=== PATIENT | male | born 1930 | race Caucasian/White ===

== ENCOUNTER 2016-08-10 08:00 | Day surgery (SDC) | payer OTHER ==
[2016-08-07 14:43] LABS: MANUAL DIFF NEEDED? NO
[2016-08-07 14:46] LABS: BASO% 0.6 % (0.0-0.8); EOS# 0.23 X1000 (0.0-0.7); EOS% 2.5 % (0.0-10.0); HEMATOCRIT 39.9 % (42.0-52.0); HEMOGLOBIN 13.6 g/dL (14.0-18.0); IMM GRAN# 0.02 X1000 (0.0-0.04); IMM GRAN% 0.2 % (0.0-0.5); LYMPH# 2.62 X1000 (1.2-3.4); MCH 31.1 PG (27-31); MCHC 34.1 g/dL (33-37); MCV 91.1 FL (81-99); MONO# 1.41 X1000 (0.11-0.59); MONO% 15.6 % (1.7-9.3); MPV 10.4 FL (7.4-10.4); NEUT% 52.1 % (42.2-75.2); PLT 258 X1000 (130-400); RBC 4.38 XMIL (4.7-6.1)
[2016-08-07 15:09] LABS: CALCIUM 9.4 mg/dL (8.8-10.2); POTASSIUM 4.7 mmol/L (3.5-5.1)
[2016-08-10] MEDS ORDERED: LR 1,000 ML ONE (08:30)
[2016-08-10] MEDS ORDERED: PEPCID ONE (08:30)
[2016-08-10] MEDS ORDERED: REGLAN ONE (08:30)
[2016-08-10] MEDS ORDERED: KEFZOL 1 GM/D5W 50 ML ONE (08:30)
--- NOTE | 2016-08-10 09:41 | Diag Imaging Result Document ---
PROCEDURE NAME: LYMPHOSCINTIGRAPHY W/O IMG - 08/10/2016 LYMPHOSCINTIGRAM: PROCEDURE: The patient was injected with 512 microcuries of tilmanocept intradermally. No images are obtained. IMPRESSION: Lymphoscintigraphy injection, as described.
[2016-08-10] MEDS ORDERED: SENSORCAINE 0.25%/EPI 1:200,000 ONE (10:39)
[2016-08-10] MEDS ORDERED: METHYLENE BLUE 1% ONE (10:39)
[2016-08-10] MEDS ORDERED: DIPRIVAN 1% ONE ×2 (12:51→16:02)
[2016-08-10] MEDS ORDERED: TORADOL ONE (15:54)
[2016-08-10] MEDS ORDERED: MORPHINE ONE (16:01)
[2016-08-10] MEDS ORDERED: NORCO-5 PO PRN (16:56)
[2016-08-10] MEDS ORDERED: TYLENOL PO PRN (16:57)
[2016-08-10] MEDS: GLUCOPHAGE PO SCH (17:44)
--- NOTE | 2016-08-10 20:01 | OPERATIVE NOTE ---
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 PRINCIPAL PROCEDURE: Left total mastectomy. SURGEON: Mar Hilton MD. ANESTHESIA: General. ESTIMATED BLOOD LOSS: 50 mL. DRAINS: A #10 flat David-Clayton drain within our wound. INDICATIONS: Jasbir Laws is an 86-year-old white male, patient of Dr. Sebastian Orta. He had a mass involving his left breast which was large and biopsies proved that it was cancer. We discussed treatment options and he chose left total mastectomy. Dr. Mccain is his medical oncologist. FINDINGS: He had a large mass involving mostly the lateral aspect of his left breast. There was 1 area along the lateral edge of the left pectoralis major muscle that appeared to be adhered to the muscle and we took that muscle with our specimen. It did not obviously involve the skin enough for any sore. We took the overlying skin in our specimen. We did not palpate any abnormal left axillary lymph nodes and we did not take any of these lymph nodes. DESCRIPTION OF PROCEDURE: The patient was injected with radioactive colloid for sentinel lymph node identification by nuclear medicine prior to surgery. He then went to surgery and his left breast was prepped and draped in a sterile field. We did inject about 3 mL of methylene blue lateral to our tumor. We then marked an elliptical incision which encompassed the large breast mass and the skin overlying it. I made the incision with a 10-blade scalpel and then cautery was used to transect the dermis and subcutaneous tissue and create our flaps. We made sure that we had good circumferential margins around our mass and the tissue was transected down to the pectoralis major muscle using cautery superiorly, medially and then inferiorly. We then removed the breast from the pectoralis major muscle from medial to lateral. On the lateral aspect of the pectoralis major muscle, we took some of the muscle but it seemed to be adhered to our specimen. The breast was removed and sent to the pathologist for permanent section. We used the navigator and we did not really have any screaming lymph nodes. We palpated the left axilla and there was no obviously enlarged or abnormal lymph nodes. We saw no blue lymph nodes and we decided against any further dissection of the left axilla. We placed a 10 flat David-Clayton drain within our wound. It was brought out through a separate stab incision inframammary fold anterior axillary line, and it was secured to the skin with a 2-0 nylon stitch. We then closed the wound in 1 layer with a skin clip trials manager and dressings were applied. He tolerated the procedure well with plans for him to go the recovery room and be hospitalized overnight and possibly home tomorrow. I spoke with his son after the procedure.
[2016-08-10] MEDS ORDERED: ZOCOR PO SCH (21:00)
[2016-08-10] MEDS: NAMENDA PO SCH (21:12)
[2016-08-10] MEDS: PERIDEX MT SCH (21:12)
[2016-08-11] MEDS: TORADOL IV SCH ×2 (00:23→06:33)
[2016-08-11] MEDS ORDERED: SYNTHROID PO SCH (07:00)
[2016-08-11] MEDS ORDERED: PRILOSEC PO SCH (07:00)
[2016-08-11 08:51] VITALS: BP 121/65
[2016-08-11] MEDS ORDERED: ALLEGRA PO SCH (09:00)
[2016-08-11] MEDS ORDERED: COZAAR PO SCH (09:00)
[2016-08-11] MEDS ORDERED: ARICEPT PO SCH (09:00)
[2016-08-11] MEDS ORDERED: JANUVIA PO SCH (09:00)
[2016-08-11] MEDS ORDERED: LOPRESSOR PO SCH (09:00)
[2016-08-11] MEDS: GLUCOPHAGE PO SCH (10:13)
[2016-08-11] MEDS: NAMENDA PO SCH (10:14)
[2016-08-11] MEDS: PERIDEX MT SCH (10:16)
--- NOTE | 2016-08-11 18:23 | DISCHARGE SUMMARY ---
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 PRINCIPAL PROCEDURE: Left total mastectomy on 08/10/2016. DISCHARGE DIET: Regular. DISCHARGE DISPOSITION: He will return to see us next week for wound check and removal of his CARLOS drain. DISCHARGE MEDICATION: He is to return to his home medication. I did not add any discharge medications. DISCHARGE DISABILITY: Full. HOSPITAL COURSE: Mr. Jasbir Laws is an 86-year-old white male who is a patient of Dr. Sebastian Orta. It was noted that he had a left breast mass and a core needle biopsy as an outpatient documented left male breast cancer. We discussed treatment options and we have chosen a total left mastectomy. On the day of admission, he underwent radioactive colloid injection for identification of sentinel lymph node by nuclear medicine. Later he went to surgery where he underwent a left total mastectomy. We examined the left axilla. No grossly abnormal lymph nodes were identified. We placed a CARLOS drain in our surgical site and after surgery went to the recovery room and then was admitted on the [address] [place] [address] [place]. On postop day 1, he was awake, cooperative. He was comfortable and required no p.o. pain medications. His CARLOS drain output was acceptable and there was no significant fluid collection under his wound. It was felt safe to discharge him home under the care of his son and family with followup in my outpatient office next week for removal of his CARLOS drain. I discussed CARLOS drain care with the family and also wound care. They know to contact me with any problems.
[2016-08-13] MEDS ORDERED: DECADRON ONE (08:44)
[2016-08-13] MEDS ORDERED: XYLOCAINE-MPF 2% ONE (08:44)
[2016-08-13] MEDS ORDERED: ZOFRAN ONE (08:44)
== END 2016-08-11 11:27 | disposition home or self-care (01) ==
LOC: OPS 08:00 → UNDOADMOB 15:53 → 4N 15:53 → OPS 08-11 11:27 → UNDODISOB 08-11 11:27
PROVIDERS: ATTEND Surgery
DX: C50.922 Malignant neoplasm of unspecified site of left male breast (principal); Z87.891 Personal history of nicotine dependence; E11.9 Type 2 diabetes mellitus without complications; Z85.46 Personal history of malignant neoplasm of prostate
CPT/HCPCS: 38792; 80048; 82948; 85025; 88307; 94799; A9520; J0690; J1100; J1885; J2270; J2405; J7120; Q9968

== ENCOUNTER 2016-10-18 10:47 | Day surgery (SDC) | payer OTHER ==
[2016-10-16 11:47] LABS: HEMATOCRIT 37.2 % (42.0-52.0); HEMOGLOBIN 12.5 g/dL (14.0-18.0); MCH 30.3 PG (27-31); MCHC 33.6 g/dL (33-37); MCV 90.3 FL (81-99); MPV 10.8 FL (7.4-10.4); RBC 4.12 XMIL (4.7-6.1)
[2016-10-16 12:01] LABS: POTASSIUM 4.5 mmol/L (3.5-5.1)
--- NOTE | 2016-10-16 13:02 | EKG Report ---
Test Performed on : 10/16/2016 11:14:59 AM Test Reason : PAT Blood Pressure : / mmHG Vent. Rate : 087 BPM Atrial Rate : 087 BPM P-R Int : 202 ms QRS Dur : 144 ms QT Int : 414 ms P-R-T Axes : 000 -70 049 degrees QTc Int : 498 ms Atrial-paced rhythm Right bundle branch block Left anterior fascicular block Bifascicular block Abnormal ECG No previous ECGs available Confirmed by Rachel BARROSO, Hugo Tesfaye ([id number]) on 10/17/2016 3:22:49 PM
--- NOTE | 2016-10-16 13:38 | Diag Imaging Result Document ---
PROCEDURE NAME: ABDOMEN/PELVIS W/WO CONTRAST - 10/16/2016 CT ABDOMEN AND PELVIS WITHOUT AND WITH CONTRAST: A dose-reduction protocol was used. Images are obtained prior to and following intravenous contrast administration. FINDINGS: There is no renal stone or hydronephrosis identified. There is an apparent 1 cm cyst at the parapelvic lower right kidney. There is an apparent 0.5 cm cyst at the lateral lower left kidney. The is an apparent 8 mm cyst at the medial upper left kidney. The bilateral kidneys, otherwise, enhance homogeneously. There is no solid-appearing renal mass identified. There is no ureteral lesion identified. The urinary bladder is substantially distended. There are some trabeculations along the urinary bladder margins. There is no discrete urinary bladder mass identified. There are multiple metallic implants at the prostate. There are no substantial abnormalities of the liver, spleen, or adrenal glands identified. There is a 2 x 1.4 cm cystic lesion at the distal tail of the pancreas. There is no surrounding infiltration or inflammation. There are no calcified gallstones seen. There are no abnormally enlarged lymph nodes identified. There is no evidence of bowel obstruction. There is colonic diverticulosis which is most extensive at the sigmoid. There is no diverticulitis identified. The appendix is unremarkable. There is no abscess identified. There is no free air. There is no substantial free fluid seen. IMPRESSION: 1. Apparent small bilateral renal cysts. No other visible renal abnormality. 2. Substantially distended urinary bladder. Some trabeculation of the urinary bladder margins. No other discrete urinary bladder lesion identified. 3. Colonic diverticulosis. No evidence of diverticulitis.
[2016-10-18] MEDS ORDERED: LR 1,000 ML ONE (11:15)
[2016-10-18] MEDS ORDERED: LOPRESSOR ONE (11:27)
[2016-10-18] MEDS ORDERED: DIPRIVAN 1% ONE (12:10)
[2016-10-18] MEDS ORDERED: NEOSPORIN G.U. IRRIGANT ONE (12:42)
[2016-10-18] MEDS ORDERED: KEFZOL 1 GM/D5W 50 ML ONE (13:17)
--- NOTE | 2016-10-18 14:36 | Diag Imaging Result Document ---
PROCEDURE NAME: RETROGRADES 2 OR 3 FILMS - 10/18/2016 BILATERAL URETEROGRAMS: COMPARISON: CT abdomen and pelvis 10/16/2016. FINDINGS: The exam was performed by the patient's urologist. The ureters and renal collecting systems are grossly normal bilaterally. IMPRESSION: No significant abnormality.
--- NOTE | 2016-10-18 15:25 | OPERATIVE NOTE ---
PROCEDURE DATE: 10/18/2016 SURGEON: Dr. David Alfredo. PREOPERATIVE DIAGNOSES: 1. History of prostate cancer. 2. History of intermittent gross hematuria. 3. Urinary incontinence. POSTOPERATIVE DIAGNOSES: 1. History of prostate cancer. 2. History of intermittent gross hematuria. 3. Urinary incontinence. 4. Small bladder tumor and urinary retention. PROCEDURE PERFORMED: Cystoscopic exam with bladder irrigation, bilateral retrograde ureteral pyelograms, cold cup excisional biopsy of a bladder tumor with random biopsies, fulguration. ANESTHESIA: General via laryngeal mask. FINDINGS: Cystoscopic exam: Urethra - Greater than 21-Liberian without stricture. Prostate - status post radiation therapy with open channel, mildly elevated bladder neck length approximately 3.5 cm. When the Delvalle catheter was placed in the bladder nearly 2 L of dark brown urine returned. The bladder irrigated without difficulty. The bladder was very redundant, very capacious. Multiple diverticula throughout, grade 3 trabeculations. There was a small papillary- like lesion on the left mid posterolateral wall. There was some red areas on the left lower posterolateral wall and left lower posterior wall. Rectal exam reveals a flat very firm prostate and fossa about 20 g in size. INDICATIONS FOR PROCEDURE: This 86-year-old male with advanced dementia has been having intermittent gross hematuria and incontinence. DESCRIPTION OF PROCEDURE: After informed consent was obtained from the patient and family and him receiving IV antibiotics, he was taken to the main OR cystoscopy room and placed in a supine position. General anesthesia via laryngeal mask was achieved. He was then placed in the low lithotomy position and prepped and draped in the usual sterile fashion for cystoscopic exam. A 21- Liberian cystoscope was passed through the patient's urethra, prostate, and into the bladder with findings as noted above. The bladder was irrigated copiously with an approximate 1 L of sterile saline. After the bladder was irrigated, an 8-Liberian cone-tipped catheter was placed and engaged the right ureteral orifice. Contrast was injected. Again, there were no filling defects and a delicate collecting system was noted. On the left side, the 8-Liberian cone-tipped catheter could not engage the left ureteral orifice because of its angle. The 8-Liberian cone-tipped catheter was removed. A 5-Liberian open- ended ureteral catheter was placed. A 0.035 zip wire was passed through the open-ended ureteral catheter and was finally able to engage the left ureteral orifice and advance up to the mid ureter. The 5-Liberian open-ended ureteral catheter was then advanced over the wire. The wire was removed and contrast was injected. The upper collecting system was very delicate. There were several filling defects that were round and moved up and down in the left ureter consistent with air bubbles. The 8-Liberian cone-tipped catheter was then removed. A drain film revealed complete emptying of both ureters. The cold cup biopsy forceps were placed, and the bladder tumor on the left mid posterolateral wall was removed with 2 bites. A random biopsy was taken from the red area on the left lower posterolateral wall and the lower posterior wall. These were sent to Pathology in their own containers. The Bugbee electrode was placed and hemostasis was achieved. The bladder was left distended and a 20-Liberian Delvalle catheter was placed without difficulty. 10 mL sterile water were placed in Delvalle's balloon. A rectal exam was performed. He tolerated the procedure well. Estimated blood loss was less than 2 mL. He was taken to the recovery room in good condition.
[2016-10-18] MEDS ORDERED: DECADRON ONE (15:30)
[2016-10-18] MEDS ORDERED: XYLOCAINE-MPF 2% ONE (15:30)
[2016-10-18] MEDS ORDERED: ZOFRAN ONE (15:30)
[2016-10-18 15:40] VITALS: BP 136/73
== END 2016-10-18 15:47 | disposition home or self-care (01) ==
LOC: OPS 10:47
PROVIDERS: ATTEND Urology
DX: D09.0 Carcinoma in situ of bladder (principal); R31.0 Gross hematuria; N31.9 Neuromuscular dysfunction of bladder, unspecified; N40.1 Benign prostatic hyperplasia with lower urinary tract symptoms; N13.8 Other obstructive and reflux uropathy; N32.89 Other specified disorders of bladder; E11.9 Type 2 diabetes mellitus without complications; I10 Essential (primary) hypertension; E03.9 Hypothyroidism, unspecified; I25.10 Atherosclerotic heart disease of native coronary artery without angina pectoris; R33.9 Retention of urine, unspecified; F03.90 Unspecified dementia, unspecified severity, without behavioral disturbance, psychotic disturbance, mood disturbance, and anxiety; K21.9 Gastro-esophageal reflux disease without esophagitis; Z85.46 Personal history of malignant neoplasm of prostate; N39.41 Urge incontinence; N52.9 Male erectile dysfunction, unspecified; Z95.0 Presence of cardiac pacemaker; Z92.3 Personal history of irradiation; Z87.891 Personal history of nicotine dependence; K57.30 Diverticulosis of large intestine without perforation or abscess without bleeding; Z79.899 Other long term (current) drug therapy; Z79.84 Long term (current) use of oral hypoglycemic drugs; Z85.3 Personal history of malignant neoplasm of breast; Z90.12 Acquired absence of left breast and nipple
CPT/HCPCS: 74178; 74420; 80048; 82948; 85027; 88305; 93005; 93010; J0690; J1100; J2405; J7120; Q9966; Q9967

== ENCOUNTER 2018-11-25 12:49 | Inpatient (IN) ==
[2018-11-25] MEDS ORDERED: TYLENOL PO PRN (14:21)
--- NOTE | 2018-11-25 14:52 | Diag Imaging Result Doc PS360 ---
EXAM: CHEST-PORTABLE HISTORY: AMS TECHNIQUE: Chest single view COMPARISON: 08/14/2017 FINDINGS: Poor inspiratory effort. The heart is not enlarged. Borderline mildly prominent vasculature. There is a left-sided pacemaker. Mild increased interstitial markings. No consolidation. No pleural effusions identified. IMPRESSION: Borderline mild pulmonary edema. Electronically signed by Leonard Loving 11/25/2018 2:50 PM
[2018-11-25 15:39] LABS: BASO# 0.04 X1000 (0.0-0.2); BASO% 0.2 % (0.0-0.8); EOS# 0.13 X1000 (0.0-0.7); EOS% 0.7 % (0.0-10.0); HEMATOCRIT 40.1 % (42.0-52.0); HEMOGLOBIN 13.8 g/dL (14.0-18.0); IMM GRAN# 0.06 X1000 (0.0-0.04); IMM GRAN% 0.3 % (0.0-0.5); LYMPH# 1.49 X1000 (1.2-3.4); LYMPH% 8.3 % (20.5-51.1); MCH 30.3 PG (27-31); MCHC 34.4 g/dL (33-37); MCV 88.1 FL (81-99); MONO# 2.06 X1000 (0.11-0.59); MONO% 11.5 % (1.7-9.3); MPV 9.5 FL (7.4-10.4); NEUT# 14.12 X1000 (1.4-6.5); PLT 373 X1000 (130-400); RBC 4.55 XMIL (4.7-6.1); RDW 12.2 % (11.5-14.5)
[2018-11-25 15:44] LABS: ALB/GLOB RATIO 0.9; ALBUMIN 3.4 g/dL (3.5-5.0); CALCIUM 9.5 mg/dL (8.8-10.2); CREATININE 1.4 mg/dL (0.7-1.2); POTASSIUM 4.4 mmol/L (3.5-5.1); TOTAL BILIRUBIN 0.32 mg/dL (0.20-1.00); TOTAL PROTEIN 7.4 g/dL (6.3-8.3)
--- NOTE | 2018-11-25 16:24 | Diag Imaging Result Doc PS360 ---
EXAM: CT HEAD W/O CONTRAST INDICATION: AMS TECHNIQUE: This exam was performed using automated exposure control, adjustment of mA or kV according to patient size, and/or use of iterative reconstruction technique. COMPARISON: None. FINDINGS: There is moderate to advanced diffuse brain atrophy. There is suggestion of mild white matter microangiopathy. There is no definite acute infarct given the limited sensitivity of CT versus MRI. There is no discrete intracranial mass, mass effect, or intracranial hemorrhage. The surrounding soft tissues and bony structures are essentially unremarkable. IMPRESSION: Diffuse brain atrophy and suggestion of mild white matter microangiopathy. No definite acute intracranial pathology by CT. Electronically signed by Adriano Huston 11/25/2018 4:22 PM
[2018-11-25 16:48] LABS: URINE SOURCE CATH
[2018-11-25] MEDS: HUMALOG SUBQ SCH ×2 (16:49→22:19)
[2018-11-25 16:59] LABS: BILIRUBIN URINE NEGATIVE (NEGATIVE); COLOR YELLOW; GLUCOSE URINE NEGATIVE (NEGATIVE); KETONE URINE NEGATIVE (NEGATIVE); NITRITE URINE NEGATIVE (NEGATIVE); PROTEIN URINE 100 mg/dL (NEGATIVE); SP GRAVITY URINE 1.017; TURBIDITY URINE HAZY (CLEAR); UROBILINOGEN URINE NORMAL (NORMAL)
[2018-11-25 17:00] LABS: LEUKOCYTES URINE LARGE (NEGATIVE)
[2018-11-25] MEDS: LOVENOX SUBQ SCH (17:05)
[2018-11-25] MEDS: NS 1,000 ML IV SCH (17:05)
[2018-11-25] MEDS: ZOSYN 3.375 GM in NS 50 ML IV SCH ×2 (17:06→22:44)
[2018-11-25 17:15] LABS: BLOOD URINE MODERATE (NEGATIVE)
[2018-11-25 17:16] LABS: UR EPITHELIAL CELLS <10 /HPF (<10); URINE BACTERIA NEGATIVE /HPF; URINE RBC TNTC /HPF (<10); URINE WBC TNTC /HPF (<10)
[2018-11-25] MEDS ORDERED: MUCINEX CHILDREN'S COUGH PO PRN (22:00)
--- NOTE | 2018-11-25 22:21 | HISTORY AND PHYSICAL ---
PRIMARY CARE PHYSICIAN: Dr. Sebastian Orta. CHIEF COMPLAINT: Alteration of mental status/lethargy. HISTORY OF PRESENT ILLNESS: 88-year-old white male with a complicated past medical history presents for evaluation of above-mentioned symptoms. Current history of present illness began approximately 1-1/2 weeks ago. At that time, patient's assisted living facility and family members noted a change in mental status with increased lethargy. The patient was seen by Dr. Alfredo on November 17. A urinalysis was ordered and on November 19 returned suggesting a urinary tract infection. Levofloxacin therapy was initiated. Culture ultimately grew Enterobacter cloacae sensitive to Levaquin. Despite antibiotic intervention, patient has continued to have considerable lethargy and confusion. Per family, his nights and days have become reversed. His hydration has been adequate, but his p.o. intake has decreased considerably. He has not had a bowel movement in 2 to 3 days. There has been no evidence of fevers, chills, nausea, vomiting, cough, congestion, shortness of breath, palpitations, chest pains, dysuria, hematuria, or pyuria. The patient has had some constipation. Because of his progressive symptoms, patient presented to my office for further evaluation and management. CBC suggested grossly elevated white blood cell count. Patient will be admitted to the hospital for full evaluation and management of urinary tract infection with associated alteration of mental status. PAST MEDICAL HISTORY: 1. Abnormal electrocardiogram with right bundle branch block/bifascicular block. 2. Bladder cancer diagnosed in [address] Alfredo. 3. 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 4. Bilateral cataract removal. 5. Type 2 diabetes. 6. Diverticulosis, chronic lower extremity edema. 7. Hypertension. 8. Chronic lower extremity edema. 9. Hypertension. 10. Hypertriglyceridemia. 11. Hyperlipidemia. 12. Abnormal skin examination with multiple seborrheic keratoses, occasional actinic keratosis, and keloid formation. 13. Low HDL. 14. History of prostate cancer status post radioactive bead implants. 15. Dementia. 16. History of colonic polyps. 17. Hypothyroidism. 18. History of sick sinus syndrome status post pacemaker implantation. 19. Incontinence status post Delvalle catheter placement in 2018. CURRENT MEDICATIONS: 1. Aricept 10 mg at bedtime. 2. Centrum Silver daily. 3. Clotrimazole and betamethasone cream as needed. 4. Fexofenadine 180 mg daily. 5. Flomax 0.4 mg daily. 6. Glipizide ER 2.5 mg daily. 7. Januvia 100 mg daily. 8. Levothyroxine 112 mcg daily. 9. Losartan 50 mg daily. 10. Metformin 1000 mg twice daily. 11. Namenda 10 mg twice daily. 12. Prilosec 20 mg daily. 13. Simvastatin 20 mg at bedtime. 14. Toprol-XL 50 mg daily. ALLERGIES: Patient answered no known drug allergies. SOCIAL HISTORY: Patient is a former smoker having smoked 1/2 pack per day for 5 years. He stopped in 1951. He denies alcohol or illicit drug use. He is a retired missionary. He exercises as tolerated. REVIEW OF SYSTEMS: A 12 point review of systems was performed. Pertinent positives and negatives are noted in history of present illness. PHYSICAL EXAMINATION: Temperature 94.5 degrees, heart rate 102, respirations 18, blood pressure is 137/78. GENERAL: Well nourished, well developed, no acute distress. HEENT: Normocephalic, atraumatic. Pupils equal, round, reactive to light. Extraocular muscles intact. Sclerae anicteric. Tiburon conjunctivae. Oral and nasopharynx clear without exudate. NECK: Supple. No lymphadenopathy. No thyromegaly. No bruits auscultated. CARDIOVASCULAR: Regular rate and rhythm. No significant murmurs, rubs, or gallops. PULMONARY: Clear to auscultation bilaterally. ABDOMEN: Soft, nontender, nondistended. Positive bowel sounds. EXTREMITIES: Moves all extremities well. No significant clubbing, cyanosis, or edema. NEUROLOGIC: Cranial nerves 2 through 12 grossly intact. Motor and sensory grossly intact. PSYCHOLOGIC: Reveals confusion. LABORATORY DATA: White blood cell count 17.90, hemoglobin 13.8, hematocrit 40.1, platelet count 373,000. Sodium 130, potassium 4.4, chloride 94, bicarb 26, BUN 26, creatinine 1.4, glucose 151, calcium 9.5, total bilirubin 0.32, total protein 7.4, albumin 3.4, alkaline phosphatase 44, AST 26, ALT 16. Urinalysis reveals large leukocytes with too many to count white blood cells and too many to count red blood cells. ASSESSMENT AND PLAN: An 88-year-old white male with a complicated past medical history as noted presents for evaluation of alteration of mental status with associated lethargy. White blood cell count is noted to be significantly elevated. Urinalysis remains abnormal. The patient will be admitted to the hospital for full evaluation and management of urinary tract infection with associated mental status change. 1. Admit to General Medicine. 2. Urinary tract infection-as described above, patient grew Enterobacter cloacae per previous urine culture. This was sensitive to levofloxacin, however, patient did not achieve significant improvement clinically. We will transition patient to IV Zosyn. We will check blood cultures and urine cultures. We will initiate hydration. We will follow this. 3. Leukocytosis-this likely is a consequence of his current infection. We will treat as above. 4. Alteration of mental status-this likely is a consequence of underlying urinary tract infection. We will treat urinary tract infection as described. If patient has persistent symptoms, we will consider further evaluation and management. CT scan of the head returned without acute abnormalities upon admission. 5. Diabetes-we will hold patient's metformin, Januvia, and glipizide. We will cover patient with sliding scale insulin. We will resume home medications once appropriate. 6. Hypertension-we will resume patient's losartan therapy. We will follow this. 7. Hyperlipidemia/hypertriglyceridemia-we will continue patient on home medications. 8. Urinary retention-patient has an indwelling Delvalle catheter. We will remain aware. 9. Fluid, electrolytes, nutrition. We will monitor electrolytes. Normal saline at KVO. Diabetic diet. 10. Prophylaxis. Patient will be placed on subcu Lovenox. cc: Sebastian Orta MD
[2018-11-25] MEDS: MELATONIN PO SCH (22:44)
[2018-11-25] MEDS ORDERED: ROBITUSSIN-DM PO PRN (22:49)
[2018-11-26] MEDS: ZOSYN 3.375 GM in NS 50 ML IV SCH ×2 (06:34→12:21)
[2018-11-26] MEDS: HUMALOG SUBQ SCH ×3 (06:35→20:10)
[2018-11-26] MEDS: SYNTHROID PO SCH (06:38)
[2018-11-26] MEDS: PRILOSEC PO SCH (06:38)
[2018-11-26 06:55] LABS: BASO# 0.05 X1000 (0.0-0.2); BASO% 0.4 % (0.0-0.8); EOS# 0.34 X1000 (0.0-0.7); EOS% 2.4 % (0.0-10.0); HEMATOCRIT 36.2 % (42.0-52.0); HEMOGLOBIN 12.4 g/dL (14.0-18.0); IMM GRAN# 0.03 X1000 (0.0-0.04); IMM GRAN% 0.2 % (0.0-0.5); LYMPH% 17.1 % (20.5-51.1); MCH 30.2 PG (27-31); MCHC 34.3 g/dL (33-37); MCV 88.1 FL (81-99); MONO# 1.66 X1000 (0.11-0.59); MONO% 11.8 % (1.7-9.3); MPV 9.6 FL (7.4-10.4); NEUT# 9.55 X1000 (1.4-6.5); NEUT% 68.1 % (42.2-75.2); PLT 331 X1000 (130-400); RBC 4.11 XMIL (4.7-6.1); RDW 12.3 % (11.5-14.5); WBC 14.03 X1000 (4.8-10.8)
[2018-11-26 07:13] LABS: AGAP 11; ALB/GLOB RATIO 0.8; ALBUMIN 3.1 g/dL (3.5-5.0); ALKALINE PHOSPHATASE 38 U/L (32-122); BUN 22 mg/dL (8-22); CHLORIDE 98 mmol/L (98-107); COSMO 269; CREATININE 1.1 mg/dL (0.7-1.2); ESTIMATED GFR > 60; GLUCOSE 153 mg/dL (70-104); GOT 20 U/L (10-34); GPT 13 U/L (10-44); POTASSIUM 4.4 mmol/L (3.5-5.1); SODIUM 131 mmol/L (136-145); TCO2 22 mmol/L (25-35); TOTAL BILIRUBIN 0.43 mg/dL (0.20-1.00); TOTAL PROTEIN 6.9 g/dL (6.3-8.3)
[2018-11-26] MEDS: CENTRUM SILVER PO SCH (09:10)
[2018-11-26] MEDS: VITAMIN D PO SCH (09:10)
[2018-11-26] MEDS: GLUCOTROL XL PO SCH (09:10)
[2018-11-26] MEDS: TOPROL XL PO SCH (09:10)
[2018-11-26] MEDS: ALLEGRA PO SCH (09:10)
[2018-11-26] MEDS: JANUVIA PO SCH (09:10)
[2018-11-26] MEDS: FLOMAX PO SCH (09:10)
[2018-11-26] MEDS: COZAAR PO SCH (09:10)
[2018-11-26] MEDS: NAMENDA PO SCH ×2 (09:11→20:35)
[2018-11-26] MEDS: GLUCOPHAGE XR PO SCH ×2 (09:11→20:35)
[2018-11-26] MEDS: LOVENOX SUBQ SCH (15:23)
--- NOTE | 2018-11-26 20:03 | PROGRESS NOTE ---
DATE: 11/26/2018 SUBJECTIVE: The patient was admitted yesterday with alteration of mental status and lethargy. Laboratory data was pursued. The patient's white blood cell count was noted to be considerably elevated. The patient's creatinine also was slightly elevated, suggesting mild acute renal failure. Urinalysis revealed too many to count white blood cells. The patient had blood cultures and urine cultures performed, and the patient was started on IV hydration and Zosyn therapy. With treatment, the patient has achieved improvement, although not resolution to baseline. This morning, the patient was sitting upright in the bed with his son. He was eating breakfast. He was interactive. This evening, patient also was with his son. He is about to begin dinner. He does interact and is quite jovial. He denies fevers, chills, nausea, vomiting, shortness of breath, or chest discomfort. OBJECTIVE: Vital Signs: Maximum temperature 98.6 degrees, heart rate 80 to 98, respirations 18 to 20, blood pressure 124 to 151 over 66 to 86. General: Well nourished, well developed, in no acute distress. Cardiovascular: Regular rate and rhythm. No significant murmurs, rubs, or gallops. Pulmonary: Clear to auscultation bilaterally. Abdomen: Soft, nontender, nondistended. Positive bowel sounds. Extremities: Moves all extremities well. No significant clubbing, cyanosis, or edema. Dermatologic: No evidence of rash. LABORATORY DATA: White blood cell count 14.03, hemoglobin 12.4, hematocrit 36.2, platelet count 331,000. Sodium 131 potassium 4.4, chloride 98, bicarb 22, BUN 22, creatinine 1.1, glucose 153, calcium 9.0, total bilirubin 0.43, total protein 6.9, albumin 3.1, alkaline phosphatase 38, AST 20, ALT 13. ASSESSMENT AND PLAN: 1. Urinary tract infection: Urine culture prior to admission suggested Enterobacter cloacae. Interestingly, he had been treated with levofloxacin with appropriate sensitivity. Unfortunately, this proved to be ineffective. The patient currently is being treated with Zosyn therapy. Symptoms are improving. We will continue intravenous hydration. We will follow up on blood and urine cultures. 2. Leukocytosis: This is likely a consequence of his acute illness. White blood cell count is trending downward. 3. Alteration of mental status: The patient's mentation is approaching his baseline dementia. Once again, this likely was a consequence of his urinary tract infection. 4. Diabetes: The patient's metformin, Januvia, and glipizide have been held. He is covered with sliding scale insulin. We will plan to resume these once appropriate. 5. Acute renal failure: The patient's renal function is approaching baseline. We will continue hydration. 6. Hypertension: The patient's blood pressure is reasonably controlled with losartan therapy. 7. Hyperlipidemia: We will continue patient on simvastatin therapy. 8. Urinary retention: The patient has an indwelling Delvalle catheter. We will remain aware. 9. Disposition: At this point, the patient continues to require [facility] care in a hospital setting. We will plan discharge home once appropriate. cc: Sebastian Orta MD
[2018-11-26] MEDS: ZOCOR PO SCH (20:35)
[2018-11-26] MEDS: MELATONIN PO SCH (20:35)
[2018-11-26] MEDS: ARICEPT PO SCH (20:35)
[2018-11-27] MEDS: HUMALOG SUBQ SCH ×5 (02:38→21:54)
[2018-11-27] MEDS: ZOSYN 3.375 GM in NS 50 ML IV SCH ×5 (02:39→21:51)
[2018-11-27] MEDS: SYNTHROID PO SCH (06:44)
[2018-11-27] MEDS: PRILOSEC PO SCH (06:44)
[2018-11-27 07:11] LABS: BASO# 0.04 X1000 (0.0-0.2); BASO% 0.2 % (0.0-0.8); EOS# 0.31 X1000 (0.0-0.7); EOS% 1.7 % (0.0-10.0); HEMATOCRIT 35.1 % (42.0-52.0); IMM GRAN# 0.04 X1000 (0.0-0.04); IMM GRAN% 0.2 % (0.0-0.5); LYMPH# 2.04 X1000 (1.2-3.4); MCH 30.2 PG (27-31); MCHC 34.2 g/dL (33-37); MCV 88.2 FL (81-99); MONO# 1.31 X1000 (0.11-0.59); MONO% 7.1 % (1.7-9.3); MPV 9.7 FL (7.4-10.4); NEUT# 14.78 X1000 (1.4-6.5); NEUT% 79.8 % (42.2-75.2); PLT 330 X1000 (130-400); RBC 3.98 XMIL (4.7-6.1); RDW 12.2 % (11.5-14.5); WBC 18.52 X1000 (4.8-10.8)
[2018-11-27 07:45] LABS: AGAP 12; ALB/GLOB RATIO 0.9; ALBUMIN 3.1 g/dL (3.5-5.0); ALKALINE PHOSPHATASE 42 U/L (32-122); BUN 21 mg/dL (8-22); CALCIUM 8.5 mg/dL (8.8-10.2); CHLORIDE 99 mmol/L (98-107); COSMO 268; CREATININE 1.1 mg/dL (0.7-1.2); ESTIMATED GFR > 60; GLUCOSE 146 mg/dL (70-104); GOT 20 U/L (10-34); GPT 13 U/L (10-44); POTASSIUM 4.3 mmol/L (3.5-5.1); SODIUM 131 mmol/L (136-145); TCO2 20 mmol/L (25-35); TOTAL BILIRUBIN 0.52 mg/dL (0.20-1.00); TOTAL PROTEIN 6.6 g/dL (6.3-8.3)
[2018-11-27] MEDS: GLUCOPHAGE XR PO SCH ×2 (09:10→21:51)
[2018-11-27] MEDS: FLOMAX PO SCH (09:10)
[2018-11-27] MEDS: COZAAR PO SCH (09:10)
[2018-11-27] MEDS: TOPROL XL PO SCH (09:10)
[2018-11-27] MEDS: CENTRUM SILVER PO SCH (09:11)
[2018-11-27] MEDS: GLUCOTROL XL PO SCH (09:11)
[2018-11-27] MEDS: ALLEGRA PO SCH (09:11)
[2018-11-27] MEDS: VITAMIN D PO SCH (09:11)
[2018-11-27] MEDS: NAMENDA PO SCH ×2 (09:11→21:51)
[2018-11-27] MEDS: JANUVIA PO SCH (09:11)
[2018-11-27] MEDS: LOVENOX SUBQ SCH (15:58)
--- NOTE | 2018-11-27 20:40 | PROGRESS NOTE ---
DATE: 11/27/2018 SUBJECTIVE: This morning the patient was sitting upright. He noted resting reasonably well overnight. He had persistent confusion, but not above baseline. Throughout the day today the patient was assisted on multiple occasions up in chair. His energy level decreased with time. By the end of the day, his assistance with ambulation and transfer had declined considerably. This evening the patient was being assisted in the bed. He denies fevers, chills, nausea, vomiting, shortness of breath or chest discomfort. Oral intake has been adequate. OBJECTIVE: T-max 100 degrees, heart rate 82 to 93, respirations is 16 to 20. Blood pressure 129 to 172 over 67 to 77. General: No acute distress. Cardiovascular: Regular rate and rhythm. No significant murmurs, rubs or gallops. Pulmonary: Clear to auscultation bilaterally. Abdomen is soft, nontender, nondistended. Positive bowel sounds. Extremities: Moves all extremities well. No significant clubbing, cyanosis or edema. Dermatologic evaluation reveals no evidence of rash. LABORATORY DATA: White blood cell count 18.52, hemoglobin 12.0, hematocrit 35.1, platelet count 330,000. Sodium 131, potassium 4.3, chloride 99, bicarbonate 20, BUN 21, creatinine 1.1, glucose 146, calcium 8.5, total bilirubin 0.52, total protein 6.6, albumin 3.1, alkaline phosphatase 42, AST 20, ALT 13. ASSESSMENT AND PLAN: 1. Urinary tract infection: Recent culture grew Enterobacter cloacae. The patient is currently being treated with Zosyn therapy per sensitivities. Repeat culture thus far has returned negative. We will remain aware. 2. Leukocytosis: This is quite interesting. White blood cell count increased from yesterday. The question is raised whether urinary tract infection is adequately treated or if there is a potential for another site. Temperature has remained within normal limits, although one low- grade temperature was recorded. At this point we will continue current regimen. If white blood cell count continues to increase, we will consider alternative etiologies of infection including pulmonary. 3. Alteration of mental status: The patient's mental status is approaching his baseline dementia. We will continue supportive care. 4. Diabetes: The patient's metformin, Januvia and glipizide have been held. For now, we will continue sliding scale insulin. 5. Acute renal failure: The patient's renal function has reached baseline. We will continue hydration for now. 6. Hypertension: The patient's blood pressure is reasonably controlled on losartan therapy. 7. Urinary retention: The patient has an indwelling Delvalle catheter. We will discuss replacing Delvalle catheter with Dr. Alfredo. 8. Dysphagia: We will order a swallowing evaluation. 9. Disposition: At this point the patient continues to require long-term care in a hospital setting. We will plan discharge home or to rehabilitation once appropriate. cc: Sebastian Otra MD
--- NOTE | 2018-11-27 21:15 | CONSULTATION ---
DATE OF CONSULTATION: 11/27/2018 ATTENDING AND REFERRING PHYSICIAN: Sebastian Orta MD HISTORY OF PRESENT ILLNESS: This 88-year-old male was admitted with mental status changes and lethargy. The patient has had an indwelling Delvalle catheter since October of 2016 when it was noted on evaluation for hematuria that he had a markedly distended bladder. The patient and son has declined transurethral resection of the prostate and placement of a suprapubic tube. His Delvalle catheter is exchanged monthly in the [facility]. At last change on 11/17/2018, he was having some irritative voiding and spasms, and a culture grew Enterobacter that was sensitive to Levaquin. He has been on Levaquin. Over the last several days he has become more lethargic and not able to walk like he previously did. The patient also has a history of prostate cancer and had radiation therapy in 2001. In October 2016, he had gross hematuria and evaluation revealed a markedly distended bladder but also red areas in the bladder. Removal of these areas revealed urothelial carcinoma in situ. The standard of care treatment for that was intravesical BCG, but the patient and family declined. They just opted for observation. This was done, but he then again developed hematuria in October of 2017. The bladder had papillary-like areas and increased redness. These were resected that revealed high-grade urothelial carcinoma and carcinoma in situ. Again this was watched and in October 2018, he again had gross hematuria. The bladder revealed large areas that were abnormal. 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 The patient has not had any more hematuria since the surgery in October 2018. Again his indwelling Delvalle catheter was changed on 17 November. The patient and son state he is doing better at this time. PAST MEDICAL HISTORY: Hypothyroidism, dementia, cardiac dysrhythmia, hypertension, elevated cholesterol, gastroesophageal reflux disease, diabetes, history of diverticulosis. CURRENT MEDICATIONS: Documented on the chart. PAST SURGICAL HISTORY: Radiation therapy for prostate cancer, mastectomy for breast cancer, bilateral cataract surgery, pacemaker placement for the cardiac dysrhythmia, transurethral resection of bladder tumor x3 as noted in the HPI. SOCIAL HISTORY: No tobacco or alcohol use. He is cared for by his family. ALLERGIES: No known drug allergies. REVIEW OF SYSTEMS: No recent chest pains, pulmonary or bowel problems. PHYSICAL EXAMINATION: General: A mildly obese, age apparent, normally developed, white male, who is cooperative. HEENT: Normal for age. Cardiovascular: Regular rate and rhythm. Abdomen: Protuberant, soft, nontender. No hepatosplenomegaly or masses. Normal bowel sounds. Genitourinary: Uncircumcised male. Delvalle catheter in place. Both testes are down and somewhat small. Extremities: With mild edema. Otherwise, no cyanosis or clubbing. Neurologic: No focal deficits. LABORATORY EVALUATION: He has a white count of 18.52, which is increased from 14 yesterday, hemoglobin of 12, hematocrit of 35.1. Platelets are 330,000. Serum sodium is 131, potassium 4.3, chloride 99, bicarb 20, BUN 21, creatinine 1.1. IMPRESSION: 1. History of prostate cancer. 2. 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 3. History of breast cancer. 4. Neurogenic bladder with urinary retention that is managed with an indwelling Delvalle catheter (since October of 2016). Recent treatment for Enterobacter urinary tract infection whose culture while hospitalized is no growth. Blood cultures are pending. 5. Mental status changes and lethargy. RECOMMENDATIONS: 1. Continuing IV antibiotics. 2. Patient's family has declined treatment of urothelial carcinoma other than observation. 3. Really nothing to add from a urological point of view. Thank you for this consultation. cc: MD Sebastian Mario MD
[2018-11-27] MEDS: NS 1,000 ML IV SCH (21:50)
[2018-11-27] MEDS: MELATONIN PO SCH (21:51)
[2018-11-27] MEDS: ZOCOR PO SCH (21:51)
[2018-11-27] MEDS: ARICEPT PO SCH (21:58)
[2018-11-28] MEDS: ZOSYN 3.375 GM in NS 50 ML IV SCH ×4 (04:08→21:35)
[2018-11-28 06:42] LABS: BASO# 0.06 X1000 (0.0-0.2); BASO% 0.4 % (0.0-0.8); EOS# 0.52 X1000 (0.0-0.7); EOS% 3.6 % (0.0-10.0); HEMATOCRIT 34.5 % (42.0-52.0); HEMOGLOBIN 11.8 g/dL (14.0-18.0); IMM GRAN# 0.04 X1000 (0.0-0.04); IMM GRAN% 0.3 % (0.0-0.5); LYMPH# 1.94 X1000 (1.2-3.4); LYMPH% 13.6 % (20.5-51.1); MCH 30.1 PG (27-31); MCHC 34.2 g/dL (33-37); MONO# 1.51 X1000 (0.11-0.59); MONO% 10.6 % (1.7-9.3); MPV 9.4 FL (7.4-10.4); NEUT# 10.24 X1000 (1.4-6.5); NEUT% 71.5 % (42.2-75.2); PLT 329 X1000 (130-400); RBC 3.92 XMIL (4.7-6.1); RDW 12.1 % (11.5-14.5); WBC 14.31 X1000 (4.8-10.8)
[2018-11-28] MEDS: HUMALOG SUBQ SCH ×4 (06:50→22:15)
[2018-11-28] MEDS: SYNTHROID PO SCH (06:54)
[2018-11-28] MEDS: PRILOSEC PO SCH (06:54)
[2018-11-28 07:07] LABS: AGAP 9; ALB/GLOB RATIO 0.8; BUN 13 mg/dL (8-22); CALCIUM 8.5 mg/dL (8.8-10.2); CHLORIDE 98 mmol/L (98-107); COSMO 264; CREATININE 1.1 mg/dL (0.7-1.2); ESTIMATED GFR > 60; GLUCOSE 120 mg/dL (70-104); POTASSIUM 4.1 mmol/L (3.5-5.1); SODIUM 131 mmol/L (136-145); TCO2 24 mmol/L (25-35); TOTAL BILIRUBIN 0.44 mg/dL (0.20-1.00); TOTAL PROTEIN 6.8 g/dL (6.3-8.3)
[2018-11-28 07:08] LABS: ALKALINE PHOSPHATASE 35 U/L (32-122); GOT 18 U/L (10-34); GPT 14 U/L (10-44)
[2018-11-28] MEDS: TOPROL XL PO SCH (09:00)
[2018-11-28] MEDS: JANUVIA PO SCH (09:01)
[2018-11-28] MEDS: ALLEGRA PO SCH (09:01)
[2018-11-28] MEDS: VITAMIN D PO SCH (09:01)
[2018-11-28] MEDS: COZAAR PO SCH (09:01)
[2018-11-28] MEDS: CENTRUM SILVER PO SCH (09:01)
[2018-11-28] MEDS: NAMENDA PO SCH ×2 (09:01→21:35)
[2018-11-28] MEDS: GLUCOTROL XL PO SCH (09:02)
[2018-11-28] MEDS: GLUCOPHAGE XR PO SCH ×2 (09:02→21:34)
[2018-11-28] MEDS: FLOMAX PO SCH (09:02)
[2018-11-28] MEDS: LOVENOX SUBQ SCH (15:24)
--- NOTE | 2018-11-28 20:37 | PROGRESS NOTE ---
DATE: 11/28/2018 This morning upon my arrival, patient states he rested reasonably well. He denied significant symptoms at that time. Over the course of the day, patient worked with physical therapy. He remains very weak. He is unable to stand without significant assistance. His p.o. intake has been adequate. There has been no evidence of fevers, chills, nausea, vomiting, shortness of breath, or chest discomfort. This evening he was lying in bed. He denied significant symptoms. OBJECTIVE: T-max 98.1 degrees, heart rate 73 to 86, respirations 16 to 20, blood pressure 118 to 162 over 64 to 80.General: Elderly, no acute distress. Cardiovascular: Regular rate and rhythm. No significant murmurs, rubs, or gallops. Pulmonary: Clear to auscultation bilaterally. Abdomen: Soft, nontender, nondistended. Positive bowel sounds. Extremities: Moves all extremities well. No significant clubbing, cyanosis, or edema. Dermatologic: Evaluation reveals no evidence of rash. LABORATORY DATA: White blood cell count 14.31, hemoglobin 11.8, hematocrit 34.5, platelet count 329,000. Sodium 131, potassium 4.1, chloride 98, bicarb 24, BUN 13, creatinine 1.1, glucose 120, calcium 8.5, total bilirubin 0.44, total protein 6.8, albumin 3.0, alkaline phosphatase 35, AST 18, ALT 14. ASSESSMENT AND PLAN: 1. Urinary tract infection-most recent cultures grew Enterobacter cloacae sensitive to Zosyn therapy. White blood cell count has improved, although not normalized. We will continue Zosyn therapy. We will follow this closely. 2. Leukocytosis-as above, patient's white blood cell count has improved, but has not returned to baseline. We will continue antibiotic intervention. Blood and urine cultures returned negative. 3. Alteration of mental status-patient's mental status is approaching his baseline dementia. At this point, we will continue supportive care and treat urinary tract infection as above. 4. Diabetes-the patient's metformin, Januvia, and glipizide have been held. He is being treated with sliding scale insulin. We will consider resuming this within the next several days. 5. Acute renal failure-the patient's creatinine has returned to baseline of 1.1. We will continue hydration for now. 6. Hypertension-patient's blood pressure is reasonably controlled on losartan therapy. 7. Urinary retention-patient has an indwelling Delvalle catheter. We will defer management to Dr. Alfredo. 8. Dysphagia-a swallowing study has been ordered. No overt evidence of aspiration was identified. We will continue to follow clinically. 9. Disposition-at this point, patient continues to require intermediate care in a hospital setting. We will plan discharge home once appropriate. cc: Sebastian Orta MD
[2018-11-28] MEDS: MELATONIN PO SCH (21:34)
[2018-11-28] MEDS: ARICEPT PO SCH (21:35)
[2018-11-28] MEDS: ZOCOR PO SCH (21:35)
[2018-11-28] MEDS: NS 1,000 ML IV SCH (21:43)
[2018-11-29] MEDS: ZOSYN 3.375 GM in NS 50 ML IV SCH ×4 (03:42→20:50)
[2018-11-29] MEDS: SYNTHROID PO SCH (06:05)
[2018-11-29] MEDS: PRILOSEC PO SCH (06:05)
[2018-11-29] MEDS: HUMALOG SUBQ SCH ×4 (07:33→20:35)
[2018-11-29] MEDS: ALLEGRA PO SCH (08:39)
[2018-11-29] MEDS: JANUVIA PO SCH (08:39)
[2018-11-29] MEDS: GLUCOTROL XL PO SCH (08:39)
[2018-11-29] MEDS: CENTRUM SILVER PO SCH (08:40)
[2018-11-29] MEDS: NAMENDA PO SCH ×2 (08:40→20:49)
[2018-11-29] MEDS: VITAMIN D PO SCH (08:40)
[2018-11-29] MEDS: COZAAR PO SCH (08:41)
[2018-11-29] MEDS: TOPROL XL PO SCH (08:41)
[2018-11-29] MEDS: GLUCOPHAGE XR PO SCH ×2 (08:41→20:48)
[2018-11-29] MEDS: FLOMAX PO SCH (08:42)
--- NOTE | 2018-11-29 10:08 | PROGRESS NOTE ---
DATE: 11/29/2018 SUBJECTIVE: Upon my arrival this morning, patient is working with physical therapy. He is compliant, but does remain resistant and vocal in this regard. Patient slept well overnight. He continues to have profound weakness, and is unable to stand without significant assistance. His p.o. intake remains adequate. He denies fevers, chills, nausea, vomiting, shortness of breath, or chest discomfort. OBJECTIVE: Vital Signs: T-max 98.6 degrees, heart rate 74 to 85 respirations 18 to 28, blood pressure 132-165/64-82. General: Well nourished, well developed, no acute distress. Cardiovascular: Regular rate and rhythm. No significant murmurs, rubs, or gallops. Pulmonary: Clear to auscultation bilaterally. Abdomen: Soft, nontender, nondistended. Positive bowel sounds. Extremities: Moves all extremities well. No significant clubbing, cyanosis, or edema. Dermatologic: Evaluation reveals no evidence of rash. LABORATORY DATA: None. ASSESSMENT AND PLAN: 1. Urinary tract infection--blood and urine cultures from admission returned negative. He was, however, on antibiotics. Recent culture grew Enterobacter cloacae sensitive to Zosyn therapy. With improvement in his overall condition including a decreased white blood cell count and slowly increasing energy, we will continue Zosyn therapy. Upon discharge, we will plan transition to oral antibiotic intervention. 2. Leukocytosis--the patient has achieved improvement, although not back to baseline. We will continue treatment of his urinary tract infection as above. 3. Alteration of mental status--patient's mentation is approaching his baseline level dementia. We will continue supportive care and treatment of his underlying infection as described above. 4. Diabetes--patient's metformin, Januvia, and glipizide have been held. We will resume metformin today as his renal function has improved. We will continue sliding scale insulin. 5. Acute renal failure--the patient's creatinine has returned to baseline of 1.1. We will encourage oral hydration. We will discontinue intravenous fluids. 6. Hypertension--patient's blood pressure is borderline controlled on losartan therapy. We will continue his current regimen for now. We will consider increasing dosage depending on his progress. 7. Urinary retention--patient's indwelling Delvalle catheter remains present. We will defer management to Dr. Alrfedo. 8. Dysphagia--swallowing study revealed no evidence of aspiration. We will encourage aspiration precautions regardless. 9. Disposition--at this point, patient continues to require residential care in a hospital setting. We will plan discharge to rehabilitation once appropriate. cc: Sebastian Orta MD
[2018-11-29] MEDS: LOVENOX SUBQ SCH (15:06)
[2018-11-29] MEDS: ARICEPT PO SCH (20:48)
[2018-11-29] MEDS: MELATONIN PO SCH (20:48)
[2018-11-29] MEDS: ZOCOR PO SCH (20:50)
[2018-11-30] MEDS: ZOSYN 3.375 GM in NS 50 ML IV SCH ×4 (04:00→21:30)
[2018-11-30] MEDS: SYNTHROID PO SCH ×2 (05:50→06:23)
[2018-11-30] MEDS: PRILOSEC PO SCH ×2 (05:50→06:23)
[2018-11-30] MEDS: HUMALOG SUBQ SCH ×4 (06:49→21:30)
[2018-11-30 06:55] LABS: BASO# 0.06 X1000 (0.0-0.2); BASO% 0.6 % (0.0-0.8); EOS# 0.64 X1000 (0.0-0.7); IMM GRAN# 0.03 X1000 (0.0-0.04); IMM GRAN% 0.3 % (0.0-0.5); LYMPH# 2.09 X1000 (1.2-3.4); LYMPH% 19.5 % (20.5-51.1); MCH 30.1 PG (27-31); MCHC 34.2 g/dL (33-37); MONO# 1.19 X1000 (0.11-0.59); MONO% 11.1 % (1.7-9.3); MPV 9.5 FL (7.4-10.4); NEUT# 6.73 X1000 (1.4-6.5); NEUT% 62.5 % (42.2-75.2); PLT 371 X1000 (130-400); RBC 4.32 XMIL (4.7-6.1); RDW 12.1 % (11.5-14.5); WBC 10.74 X1000 (4.8-10.8)
[2018-11-30 07:18] LABS: AGAP 11; BUN 13 mg/dL (8-22); CHLORIDE 101 mmol/L (98-107); COSMO 273; CREATININE 1.1 mg/dL (0.7-1.2); ESTIMATED GFR > 60; GLUCOSE 146 mg/dL (70-104); SODIUM 135 mmol/L (136-145); TCO2 23 mmol/L (25-35)
[2018-11-30] MEDS: GLUCOPHAGE XR PO SCH ×2 (08:42→21:29)
[2018-11-30] MEDS: VITAMIN D PO SCH (08:44)
[2018-11-30] MEDS: COZAAR PO SCH (08:45)
[2018-11-30] MEDS: NAMENDA PO SCH ×2 (08:45→21:29)
[2018-11-30] MEDS: GLUCOTROL XL PO SCH (08:46)
[2018-11-30] MEDS: CENTRUM SILVER PO SCH (08:47)
[2018-11-30] MEDS: JANUVIA PO SCH (08:47)
[2018-11-30] MEDS: FLOMAX PO SCH (08:48)
[2018-11-30] MEDS: ALLEGRA PO SCH (08:48)
[2018-11-30] MEDS: TOPROL XL PO SCH (08:49)
--- NOTE | 2018-11-30 13:31 | PROGRESS NOTE ---
DATE: 11/30/2018 SUBJECTIVE: Upon my arrival, patient was sitting upright in bed. He continued to have baseline confusion, but stated, overall, he was doing reasonably well. He denies fevers, chills, nausea, vomiting, shortness of breath, or chest discomfort. OBJECTIVE: Vitals: Temperature maximum 98.3 degrees, heart rate 78-85, respirations 16, blood pressure 125 to 139 over 64 to 70. General: Well nourished, well developed, no acute distress. Cardiovascular: Regular rate and rhythm. No significant murmurs, rubs, or gallops. Pulmonary: Clear to auscultation bilaterally. Abdomen: Soft, nontender, nondistended. Positive bowel sounds. Extremities: Moves all extremities well. No significant clubbing, cyanosis, or edema. Dermatologic: Evaluation reveals no evidence of rash. LABORATORY DATA: White blood cell count 10.74, hemoglobin 13, hematocrit 38, platelet count 371,000. Sodium 135, potassium 4, chloride 101, bicarb 23, BUN 13, creatinine 1.1, glucose 146, calcium 9. ASSESSMENT AND PLAN: 1. Urinary tract infection-the patient's blood and urine cultures from admission returned negative, however he was on antibiotic intervention. Previous urine culture grew Enterobacter cloacae. For now, we will continue Zosyn therapy. We will plan to transition patient to oral antibiotics upon discharge. 2. Leukocytosis-the patient has achieved improvement with antibiotic intervention. This likely was a consequence of his urinary tract infection. 3. Alteration of mental status. The patient's mental status is approaching his baseline dementia. We will continue supportive care. 4. Diabetes-we will continue patient on metformin, Januvia, glipizide, and sliding scale insulin. Blood sugars are reasonably controlled. 5. Acute renal failure-patient has returned to baseline of 1.1. We will continue to encourage hydration. 6. Hypertension-blood pressure is reasonably controlled on his current regimen. 7. Urinary retention-we will continue Delvalle catheter placement per Dr. Alfredo. 8. Dysphagia-bedside swallowing study suggested no evidence of aspiration. We will continue to encourage deliberate swallowing. 9. Disposition-at this point, patient continues to require penitentiary care in a hospital setting. We will plan discharge home once appropriate. cc: Sebastian Orta MD
[2018-11-30] MEDS: LOVENOX SUBQ SCH (15:59)
[2018-11-30] MEDS: ZOCOR PO SCH (21:30)
[2018-11-30] MEDS: MELATONIN PO SCH (21:30)
[2018-11-30] MEDS: ARICEPT PO SCH (21:30)
[2018-12-01] MEDS: ZOSYN 3.375 GM in NS 50 ML IV SCH ×3 (03:35→14:37)
[2018-12-01] MEDS: PRILOSEC PO SCH (06:46)
[2018-12-01] MEDS: SYNTHROID PO SCH (06:46)
[2018-12-01] MEDS: HUMALOG SUBQ SCH ×2 (08:59→10:30)
[2018-12-01] MEDS: FLOMAX PO SCH (09:00)
[2018-12-01] MEDS: COZAAR PO SCH (09:01)
[2018-12-01] MEDS: GLUCOTROL XL PO SCH (09:01)
[2018-12-01] MEDS: GLUCOPHAGE XR PO SCH (09:01)
[2018-12-01] MEDS: CENTRUM SILVER PO SCH (09:01)
[2018-12-01] MEDS: VITAMIN D PO SCH (09:01)
[2018-12-01] MEDS: TOPROL XL PO SCH (09:01)
[2018-12-01] MEDS: ALLEGRA PO SCH (09:01)
[2018-12-01] MEDS: JANUVIA PO SCH (09:01)
[2018-12-01] MEDS: NAMENDA PO SCH (09:01)
[2018-12-01 12:26] VITALS: BP 135/86
--- NOTE | 2018-12-01 14:17 | DISCHARGE SUMMARY ---
ADMISSION DATE: 11/25/2018 DISCHARGE DATE: 12/01/2018 ADMISSION DIAGNOSES: 1. Alteration of mental status. 2. Lethargy. DISCHARGE DIAGNOSES: 1. Urinary tract infection secondary to Enterobacter cloacae in the setting of chronic indwelling Delvalle catheter. 2. Leukocytosis secondary to urinary tract infection, improved. 3. Alteration of mental status, improved to baseline dementia. 4. Acute renal failure, resolved. 5. Hypertension, present on arrival. 6. Diabetes, present on arrival. 7. Urinary retention, present on arrival. 8. Dysphagia with negative bedside evaluation. CONSULTATIONS: None PROCEDURES: 1. A chest x-ray was performed on 11/25/2018 which revealed borderline mild pulmonary edema. 2. A CT scan of the head was performed on 11/25/2018 which revealed diffuse brain atrophy and suggestion of mild white matter microangiopathy. No definite acute intracranial pathology per CT scan. HISTORY AND PHYSICAL EXAMINATION: See admit note. PHYSICAL EXAMINATION PRIOR TO DISCHARGE: Vital Signs: Temperature 98.1 degrees, heart rate 88, respirations 18, blood pressure 135/86. General: Elderly, well nourished, well developed, no acute distress. Cardiovascular: Regular rate and rhythm. No significant murmurs, rubs, or gallops. Pulmonary: Clear to auscultation bilaterally. Abdomen: Soft, nontender, nondistended. Positive bowel sounds. Extremities: Moves all extremities well. No significant clubbing, cyanosis, or edema. Dermatologic: Evaluation reveals no evidence of rash. LABORATORY DATA: Prior to discharge: None. HOSPITAL COURSE: Patient was admitted as per history and physical examination. Hospital course per condition is as follows. 1. Urinary tract infection. On 11/19/2018, urinalysis and culture was drawn per Dr. Alfredo. Ultimately, this grew Enterobacter cloacae. The patient was treated with levofloxacin therapy. Unfortunately, despite this, he continued to have a significant decline in his overall condition. He was noted to have increasing confusion as well as profound lethargy. The patient was seen in the office on 11/25/2018. He was admitted to the hospital at that time secondary to those symptoms. Urinalysis returned abnormal. Cultures, however, returned negative. This likely was secondary to a partially treated urinary tract infection. With treatment with Zosyn therapy, patient's condition improved while hospitalized. The patient will be discharged to rehabilitation with 1 additional week of Keflex therapy. He does have a chronic indwelling Delvalle catheter. 2. Leukocytosis. Patient was noted to have a leukocytosis upon admission. With IV antibiotic intervention, patient did achieve improvement. As above, cultures returned negative. At time of discharge, white blood cell count was within normal limits. 3. Alteration of mental status/metabolic encephalopathy. Upon admission, patient was noted to have considerable alteration above his baseline dementia. With treatment of his underlying urinary tract infection, patient did achieve improvement to his baseline. At time of discharge, his baseline dementia had been achieved. We will continue his home treatment for this. 4. Acute renal failure. Upon admission, patient's creatinine was noted to be 1.4. This decreased to 1.1, his baseline, by discharge with IV hydration. We will follow this as an outpatient as well. 5. Dysphagia. Patient was noted to have mild dysphagia while hospitalized. Bedside swallowing evaluation revealed no evidence of aspiration. Aspiration precautions will be continued. 6. Diabetes. Patient has longstanding disease. Blood sugars remained reasonably controlled with metformin, Januvia, glipizide, and sliding scale insulin. We will follow this as an outpatient as well. 7. Hypertension. Patient's blood pressure has remained labile while hospitalized. We will discharge patient home on his home regimen. 8. Urinary retention. Patient has a longstanding Delvalle catheter per Dr. Alfredo. We will discharge patient with a Delvalle catheter intact. We will follow this as well. 9. Profound weakness. While hospitalized, patient was noted to have profound weakness. This likely is a consequence of his acute illness. He was unable to stand without significant assistance. We will discharge patient to rehabilitation with a goal for safe transfer. At present time, he lives in assisted living with his . If able, we will plan to discharge him home with her in the near future. DISCHARGE CONDITION: Good. DISPOSITION: Discharged to rehabilitation. MEDICATIONS: 1. Vitamin D3, 5000 units daily. 2. Aricept 10 mg at bedtime. 3. [place] 180 mg daily. 4. Glipizide 2.5 mg daily. 5. Robitussin DM twice daily as needed. 6. Levothyroxine 112 mcg daily. 7. Losartan 50 mg daily. 8. Melatonin 3 mg at bedtime. 9. Namenda 10 mg twice daily. 10. Metformin ER 1000 mg twice daily. 11. Metoprolol ER 50 mg daily. 12. Multivitamin daily. 13. Omeprazole 20 mg daily. 14. Simvastatin 20 mg at bedtime. 15. Januvia 100 mg daily. 16. Flomax 0.4 mg daily. 17. Acetaminophen 650 mg every 4 hours as needed. 18. Keflex 500 mg twice daily for 7 days. FOLLOWUP: The patient is to follow up with me upon discharge from rehabilitation. cc: Sebastian Orta MD
[2018-12-01] MEDS: LOVENOX SUBQ SCH (14:37)
== END 2018-12-01 18:36 | DRG 698 ==
LOC: DIRADM 12:49 → 4N 13:13
PROVIDERS: ADMIT Internal Medicine; ATTEND Internal Medicine
CPT/HCPCS: 70450; 71010; 71045; 80048; 80053; 81001; 82948; 85025; 87040; 87088; 97110; 97162; 97530; A9270; J1650; J1815; J2543; J7030; XXXXX